=== PATIENT | male | born 1980 | race Caucasian/White ===

== ENCOUNTER 2019-09-20 14:27 | Emergency (ER) | payer SELFPAY ==
[2019-09-20 14:43] VITALS: BP 150/96; PULSE 91; RESP 18; TEMP 36.2; O2SAT 95
--- NOTE | 2019-09-20 14:45 | DI.RAD_ITS ---
EXAM: XR FOOT RT COMPLETE CLINICAL HISTORY: stepped back, felt pop. TECHNIQUE: 2D digital imaging was performed. COMPARISON: No exams were available for comparison FINDINGS: There are fractures seen extending through the bases of the of the 4th and 5th metatarsals. There is also questionable deformity of the base of the 3rd metatarsal. IMPRESSION: Nondisplaced fractures through the bases of the 3rd through 5th metatarsals. DATA REPOSITORY: RADIATION DOSE DELIVERED:
--- NOTE | 2019-09-20 15:09 | ED.GENADUL_ITS ---
Discharge Plan Disposition Patient Disposition: HOME Discharge Details Chief Complaint: Orthopedic Clinical Impression: Fracture of 5th metatarsal, Fracture of 4th metatarsal Primary Care Provider: Unknown,Unknown ED Provider: Fabricio Cooper Home Meds and New Rx's Prescriptions: Continued ibuprofen [Advil] 200 MG tablet 600 mg PO PRN PRNRF: 0 prednisone 10 MG tablet 20 mg PO DAILY RF: 0 lisinopril 20 MG tablet 20 mg PO DAILY RF: 0 omeprazole [Prilosec] 20 MG capsule,delayed release(DR/EC) 20 mg PO DAILY RF: 0 clindamycin HCl 150 MG capsule 450 mg PO Q8H Qty: 63 RF: 0 Discharge Instructions Instructions: Foot Fracture in Adults (ED) Additional Instructions: Wear splint and use crutches until reevaluation with orthopedics, no weightbearing. Rest, elevate, cool compresses every 2 hours for 20 minutes. I have placed you on the list for Dr. Suárez, contact his office later today or tomorrow for prompt outpatient reevaluation. [id number] Tylenol and/or Motrin as directed for discomfort. Referrals: Douglas Suárez MD [ [facility] STAFF PHYSICIAN] - Discharge Data Discharge Date/Time-TO BE ENTERED AT DEPARTURE: 09/20/19 16:31 Medical Decision Making 39-year-old gentleman presents with a right lateral foot pain after stepping backwards and feeling a pop. Examination is most consistent with 5th metatarsal fracture. Skin is intact. Neuro, vascular, tendon intact. Will obtain x-ray for further evaluation of bony abnormality. Read by me as fourth and fifth metatarsal fracture, later read by radiology as a questionable deformity at the base of the third as well. Confirms fracture of the fourth and fifth metatarsal. Discussed findings patient. Discussed treatment options. Patient reports that he needs to work a full day tomorrow and will be as compliant as he can be, unsure whether or not he will be able to stay off his foot completely. I did express my concern that he could injure this further. He is requesting a walking boot. I explained to him that I feel as though he needs a posterior Ortho-Glass splint with crutches, no weightbearing. He needs orthopedic follow- up. I would typically call orthopedics in the ER however patient reports he does not want to stay in the ER any longer, needs to work tomorrow, and will contact orthopedics on his own. I will give him an orthopedic referral and placed him on the orthopedic callback list. Applied a posterior Ortho-Glass splint, ankle to 90 degrees. Patient tolerated well. Remainder neuro, vascular, tendon intact status post splint application as examined by me. Crutches with teaching given. He will use [id number] Tylenol and/or Motrin as directed for discomfort. We discussed the importance of resting, elevating, cool compresses, nonweightbearing, and prompt orthopedic follow-up. Patient has no additional questions or concerns Medical Records Medical records reviewed: Yes I reviewed the patient's medical records. Imaging Data Radiologic Study: Attestation: I personally reviewed and interpreted this imaging study as follows: Imaging: X-Ray My impression: Right foot x-ray read by me as fourth and fifth metatarsal fracture, later read by radiology as a question to the third as well. HPI General Mode of arrival: ambulatory . Date/Time Provider Initiated Documentation: 09/20/19 14:56 . Limitations to Documentation: no limitations . Information obtained by: patient . HPI Narrative: 39-year-old gentleman who reports that while wearing shoes he took a step backwards, he did not fall or jump, and felt a pop to the right foot lateral aspect. Now with moderate pain at rest, worse with weightbearing. Denies any other injury. Denies numbness, tingling or weakness. He denies any other injury. Denies previous injury to the foot. He has not taken any medication for his discomfort. Related Data Home Medications Medication Instructions Recorded Confirmed ibuprofen [Advil] 600 mg PO PRN PRN 01/01/14 09/20/19 lisinopril 20 mg PO DAILY 01/01/14 09/20/19 omeprazole [Prilosec] 20 mg PO DAILY 01/01/14 09/20/19 prednisone 20 mg PO DAILY 01/01/14 09/20/19 clindamycin HCl 450 mg PO Q8H #63 cap 07/22/17 09/20/19 Previous Rx's Medication Instructions Recorded clindamycin HCl 450 mg PO Q8H #63 cap 07/22/17 Allergies Allergy/AdvReac Type Severity Reaction Status Date / Time Penicillins Allergy Intermediate hives as a Unverified 09/20/19 14:48 child amoxicillin AdvReac Intermediate hives as a Unverified 09/20/19 14:48 child General Stated Complaint: Orthopedic CARMEL: 3 Review of Systems Constitutional Constitutional: Denies weakness Cardiovascular Cardiovascular: Denies chest pain and Denies dyspnea Respiratory Respiratory: Denies dyspnea Gastrointestinal Gastrointestinal: Denies nausea Musculoskeletal Musculoskeletal: Reports arthralgias, Denies numbness and Denies tingling Integumentary/Breasts Skin/Breast: Denies rash Neurologic Neurologic: Denies numbness, Denies tingling and Denies weakness [facility] Social History Smoking/Tobacco Use Status: Never Alcohol Intake: never Drug use: Never Do you feel safe at home: Yes Do you feel safe in your relationship?: Yes Exam Const General: cooperative, healthy appearing, comfortable and no acute distress Orientation: alert and awake HENMT Head: normal to inspection, normocephalic and atraumatic Mouth: moist mucous membranes Eyes Conjunctivae: conjunctivae normal Neck Neck: normal visual inspection, full ROM, trachea midline and supple Resp Effort & Inspection: normal respiratory effort and able to speak in complete sentences Cardio Rate: regular rate Rhythm: regular rhythm Skin General skin exam: no rashes or lesions noted Neuro General: patient alert, patient awake, moves all extremities and no focal motor deficits Sensory Exam: no sensory deficits noted Extrem Right lower extremity: full ROM, normal capillary refill and foot Details: normal to inspection and tenderness Location: of the lateral foot and of the base of the 5th metatarsal Psych Appearance: grossly normal Mental Status: mental status grossly normal Course Vital Signs Vital signs: Vital Signs Temperature 36.2 C L 09/20/19 14:43 Pulse 91 H 09/20/19 14:43 Respiratory Rate 18 09/20/19 14:43 Blood Pressure 150/96 H 09/20/19 14:43 Pulse Oximetry 95 09/20/19 14:43 Temperature 36.2 C L 09/20/19 14:43 Temperature Source Temporal Artery Scan 09/20/19 14:43 Pulse 91 H 09/20/19 14:43 Respiratory Rate 18 09/20/19 14:43 Respiratory Effort Non-Labored 09/20/19 14:47 Blood Pressure 150/96 H 09/20/19 14:43 Blood Pressure Position Supine 09/20/19 14:43 Pulse Oximetry 95 09/20/19 14:43 Oxygen Delivery Method Room Air 09/20/19 14:43 Oxygen Flow Rate 0 09/20/19 14:43 Pain Level 10 09/20/19 14:43
== END 2019-09-20 16:31 | disposition home or self-care (01) ==
PROVIDERS: Emergency Provider Physician Assistant
DX: S92.351A Displaced fracture of fifth metatarsal bone, right foot, initial encounter for closed fracture (principal); S92.341A Displaced fracture of fourth metatarsal bone, right foot, initial encounter for closed fracture; X50.9XXA Other and unspecified overexertion or strenuous movements or postures, initial encounter
CPT/HCPCS: 28470; 73630; E0114